=== PATIENT | male | born 1965 | race Asian ===

== ENCOUNTER 2025-08-22 17:56 | Inpatient (IN) | payer MEDICAID ==
[~2025-08-22] VITALS: Ht 162.6 cm; Wt 80.0 kg
[2025-08-22 18:32] LABS: MEAN PLATELET VOLUME 7.1 FL (7.4-10.4); RED CELL DISTRIBUTION WIDTH 14.0 % (11.5-14.5)
[2025-08-22 18:55] LABS: CREATININE 1.62 MG/DL (0.60-1.10); TOTAL CARBON DIOXIDE 24.4 MMOL/L (24-32); eCRCL 41 ML/MIN; eGFR 44 ML/MIN
[2025-08-22 19:24] LABS: LEUKOCYTE ESTERASE ,URINE NEGATIVE (Neg); NITRITES, URINE NEGATIVE (Neg); OCCULT BLOOD,URINE LARGE (Neg)
[2025-08-22 19:29] LABS: UA COLLECTION TYPE NON-SPECIFIED
[2025-08-22 19:31] LABS: MUCUS STRANDS NONE SEEN /LPF (Neg); SQUAMOUS EPITHELIAL CELL,UR FEW /LPF (FEW)
--- NOTE | 2025-08-22 19:31 | Physician Documentation ---
History of Present Illness General Chief Complaint: Abdominal Pain Stated Complaint: GI BLEED Time Seen by MD: 19:28 Mode of Arrival: EMS History of Present Illness Initial Comments The patient is a 60-year-old male transferred to our facility from [facility] for evaluation and a GI bleed. It the patient reports epigastric discomfort for last seven days. The patient is states he has also had black tarry stool over the last 4-5 days. The patient also reports intermittent epigastric abdominal pain. Patient denies any nausea or vomiting. The patient has denies any fever. Patient has hemoglobin at the outside institution was 8.3, CT imaging of the abdomen failed to demonstrate any significant pathology. With the patient was started on a Protonix drip and the patient was transferred to our facility. The patient is currently comfortable with no complaints of pain and no complaints of nausea. The patient denies any history of GI bleed in the past. He states he has not no either medical problems. The patient has not noted to be taking Flomax. The patient states he intermittently takes an aspirin for pain, but he states he does not take anything daily and he takes aspirin infrequently Medication Reconciliation Allergies: Coded Allergies: No Known Allergies (Unverified , 08/22/25) Miscellaneous Medications Home Med List (No Home Medications), (Reported) Past Medical History Past Medical History: No Pertinent History Past Surgical History: noncontributory Alcohol Use: None Drug Use: none Review of Systems All Other Systems at this time: Reviewed and Negative Physical Exam Physical Exam Vital Signs: Temperature: 98.4, Source: Oral, Heart Rate: 83, Respiratory Rate: 16, BP: 159/82, Pulse Oximetry: 100, Weight: 80.000 Oxygen Flow Rate: 0 Physical Exam VITALS: Reviewed and as above. GENERAL: Alert, no apparent distress. HEENT: Normocephalic, atraumatic, PERRL, EOMI, dry mucosa, no erythema RESPIRATORY: Lungs clear, normal breath sounds, no respiratory distress. CHEST: No accessory muscle use, no retractions CV: Regular rate, rhythm, no edema, no murmur, No: JVD GI: Soft, non-tender, bowels sounds present, no rebound, guarding, or rigidity BACK: No CVA tenderness, or swelling MUSCULOSKELETAL: No deformities, no edema SKIN: Warm and dry, no rash NEURO: Oriented x4, No motor or sensory deficit PSYCH: Normal mood and affect, no agitation Progress Results/Orders Results/Orders Completed Orders - OHL,MICHELLE Cooper MD Pantoprazole 40mg Iv (Protonix 40mg Iv) (08/22/25 20:25) Vital Signs 08/22/25 08/22/25 08/22/25 08/22/25 17:59 18:27 18:27 19:51 Temp 98.4 98.4 98.4 Pulse 80 83 82 Resp 20 16 16 20 B/P (MAP) 146/81 159/82 (107) 134/78 (96) Pulse Ox 100 100 100 O2 Flow Rate 0 0 0 08/22/25 21:05 Temp 98.4 Pulse 80 Resp 18 B/P (MAP) 140/73 (95) Pulse Ox 99 O2 Flow Rate 0 Laboratory Tests Test 08/22/25 18:15 08/22/25 18:50 White Blood Count 6.4 Red Blood Count 2.58 L Hemoglobin 8.2 L Hematocrit 23.6 L Mean Corpuscular Volume 91.3 Mean Corpuscular Hemoglobin 31.7 H Mean Corpuscular Hemoglobin Concent 34.7 Red Cell Distribution Width 14.0 Platelet Count 154 Mean Platelet Volume 7.1 L Neutrophils (%) (Auto) 72.4 Lymphocytes (%) (Auto) 20.3 L Monocytes (%) (Auto) 5.3 Eosinophils (%) (Auto) 1.2 Basophils (%) (Auto) 0.8 Neutrophils # (Auto) 4.6 Lymphocytes # (Auto) 1.3 Monocytes # (Auto) 0.3 Eosinophils # (Auto) 0.1 Basophils # (Auto) 0.1 CBC Comment Prothrombin Time 10.7 INR International Normalized Ratio 1.0 Activated Partial Thromboplast Time 24 Coagulation Comments Sodium Level 140 Potassium Level 4.4 Chloride Level 112 H Carbon Dioxide Level 24.4 Anion Gap 4 L Blood Urea Nitrogen 38 H Creatinine 1.62 H Estimated GFR/1.73 m2 44 BUN/Creatinine Ratio 23.5 H Glucose Level 137 H Hemoglobin A1c 6.3 H Calcium Level 7.9 L Phosphorus Level 2.1 L Magnesium Level 1.7 Total Bilirubin 0.2 Direct Bilirubin 0.1 Aspartate Amino Transf (AST/SGOT) 26 Alanine Aminotransferase (ALT/SGPT) 29 Alkaline Phosphatase 87 Pro-B-Type Natriuretic Peptide < 30 Total Protein 6.4 Albumin 2.9 L Globulin 3.5 Albumin/Globulin Ratio 0.8 L Triglycerides Level 174 H Cholesterol Level 132 LDL Cholesterol 75 HDL Cholesterol 34 L Cholesterol/HDL Ratio 3.9 Lipase 96 H Chemistry Comments Urine Specimen Description Non-specified Urine Color Yellow Urine Clarity Clear Urine pH 6.0 Urine Specific [place] <=1.005 Urine Protein Negative Urine Glucose (UA) Negative Urine Ketones Negative Urine Occult Blood Large H Urine Nitrite Negative Urine Bilirubin Negative Urine Urobilinogen 0.2 Urine Leukocyte Esterase Negative Urine RBC 10-20 Urine WBC 0-4 Urine Squamous Epithelial Cells Few Urine Bacteria None seen Urine Mucus None seen Urine Culture Indicated Not ind Volume Urine Centrifuged 10 ml Urine Comment Medical Decision Making Additional information obtaine: old records Findings The patient was transferred for admission to our hospital with a reported history of heme-positive black tarry stools over last four days, the patient is hemodynamically stable his hemoglobin is 8.2 with the outside institution of his 8.3 the patient has no abdominal pain at this time in his has a benign abdominal exam. The patient's chart from the outside institution was reviewed the patient's imaging results on of the CAT scan were reviewed. The patient's tray drier operator was interpreted as a sinus rhythm. The patient's pulse oximetry was interpreted as normal and adequate. The patient's Protonix drip was continued the patient had received Protonix drip and antibiotics at the outside institution. Case has been discussed with the hospitalist the patient will be admitted to the hospitalist Differential Diagnosis Anemia, GI bleed, peptic ulcer disease, malignancy, Departure Admitted to Inpatient Unit: yes, to hospitalist Impression: Primary Impression: GI bleed Qualified Codes: K92.2 - Gastrointestinal hemorrhage, unspecified Additional Impression: Anemia Qualified Codes: D64.9 - Anemia, unspecified Referrals: NO PRIMARY CARE PROVIDER (PCP) Signature Scribe Signature: no scribe Attestation: The note accurately reflects work and decisions made by me.Michelle Fairbanks MD 08/23/25 05:29 MICHELLE FAIRBANKS MD Aug 22, 2025 19:31
[2025-08-22] MEDS ORDERED: pantoprazole 40MG/NS 100ML BAG 100 ML IV ONE (20:20)
[2025-08-22] MEDS ORDERED: magnesium hydroxide 30ml (MOM) UD suspension PO PRN (21:00)
[2025-08-22] MEDS ORDERED: magnesium sulf-water 4G/100mL 100 ML IV PRN (21:00)
[2025-08-22] MEDS ORDERED: mag hydrox/Alum hydrox/simeth 30ml oral suspension PO PRN (21:00)
[2025-08-22] MEDS ORDERED: magnesium Cl slow-release 64mg tablet PO PRN (21:00)
[2025-08-22] MEDS ORDERED: magnesium sulf-water 2g/50mL 50 ML IV PRN (21:00)
[2025-08-22] MEDS ORDERED: ondansetron/PF 4mg/2ml inj IV PRN (21:00)
[2025-08-22] MEDS ORDERED: potassium Cl 40MEQ/1/2NS 520ml 520 ML IV PRN (21:00)
[2025-08-22] MEDS ORDERED: potassium Cl 20 mEq SR tablet PO PRN ×2 (21:00)
[2025-08-22] MEDS: pantoprazole 40MG/NS 100ML BAG 100 ML IV SCH (21:25)
[2025-08-22 21:45] LABS: APTT 24 SECONDS (22-32); INR 1.0 INR
[2025-08-22 22:02] LABS: CHOL/HDL RATIO 3.9 (0.00-4.99); LDL CHOLESTEROL 75 MG/DL (50-100); PHOSPHORUS 2.1 MG/DL (2.3-4.5); PRO BRAIN NATRIURETIC PEPTIDE < 30 PG/ML (0-125)
[2025-08-22 22:25] LABS: MEAN PLATELET VOLUME 6.8 FL (7.4-10.4); RED CELL DISTRIBUTION WIDTH 14.1 % (11.5-14.5)
[2025-08-22] MEDS ORDERED: dextrose 50%-water 50ml dispensing syringe IV PRN ×2 (22:40)
[2025-08-22] MEDS ORDERED: glucagon, human recombinant 1mg kit SUBCUT PRN (22:40)
[2025-08-22] MEDS ORDERED: DEXTROSE 15 GM of carb/4 tabs (each vial/BOTTLE has 4 tablets) PO PRN ×2 (22:40)
--- NOTE | 2025-08-22 22:43 | HISTORY AND PHYSICAL-Residence ---
History & Physical Providers to CC Resident Creating Document: JERARDO ERNST, RES CC: LINDA MARTINEZ MD ~ History of Present Illness Reason for Admit\Complaint: Upper GI bleed History of Present Illness A 60 year old Ignacia speaking patient, with limited Belgian proficiency who is a transfer from [facility]. Patient does not have any comorbid significant medical history, patient was a transfer from [facility] in view of upper GI bleed. As per patient he has had black tarry stools for the last one week, associated with mild vague intermittent epigastric pain. Patient expressed that he has been feeling extreme weakness and tiredness since the last one week. Patient denied any hematemesis, hematochezia. Patient denied any use of herbal supplements, excessive NSAIDs use, outside food consumption. As per patient patient has never undergone a colonoscopy before, he denied any family history of colon cancer Patient resides at [facility] with his . Patient visits primary care doctor in [facility] but could not tell me the name of the clinic or the doctor's name I tried connecting with the transfer machine operator services multiple times but they could not find a Ignacia transfer machine operator. Patient understands Belgian and was able to answer my questions. Allergies: Coded Allergies: No Known Allergies (Unverified , 08/22/25) Home Medications Home Medications Active Past Surgical History Surgical History Comment In 2020, patient underwent a cystourethroscopy with left retrograde pyelography and left retrograde ureteral stent placement. Past Social History Social History Comment Patient denied any alcohol/smoking/illicit drug use Alcohol Use: None Drug Use: None ROS All Other Systems: Reviewed and Negative ROS Constitutional: No fever, dizziness, weakness noted, no decrease in appetite HEENT: Normal vision. No sore throat, epistaxis, tinnitus Cardiovascular: No chest pain/discomfort, palpitations, syncope. no pedal edema Respiratory: No sob, cough,hemoptysis Gastrointestinal: No abdominal pain, nausea, vomiting. No diarrhea, melena noted Genitourinary: No frquency, urgency, incontinence, nocturia. No dysuria, hematuria. Musculoskeletal: Normal, no pains Endocrine: No fatigue, polydipsia, polyuria. No heat or cold intolerance Neurologic: No headache, vertigo. No weakness, numbness or tingling of extremities Psychiatric: No hallucinations/delusions, no anhedonia, no suicidal ideation Hematologic: No bruises Exam Vitals: Vital Signs Date Time Temp Pulse Resp B/P (MAP) Pulse Ox O2 Delivery O2 Flow Rate FiO2 08/22/25 22:08 98.4 78 16 142/81 (101) 98 0 General: General: Awake, oriented to person, place and time HEENT: Conjunctive are pink, sclerae clear, no icterus, pupil is equal in both sides, reactive to light, no ear discharge, no pharyngeal erythema or an edema. Neck: Supple, no JVD, no lymphadenopathy and thyromegaly. Chest: Equal air entry on both lungs, no additional sounds no rhonchi no wheezing at the moment. Cardiovascular: S1-S2 regular sinus rhythm and, regular rate, no gallops, no rubs, no murmurs Abdomen: No visible peristalsis, Bowel sounds present on auscultation, soft, no tenderness, no guarding, no rigidity Extremities: No obvious deformities, no pitting edema bilaterally, capillary refill intact, peripheral pulsations are intact on both sides Neurologic: Mental status: alert and conscious, oriented to place, person and time, preserved memory, normal speech. Cranial nerves I-XII: Normal. Motor system: Preserved power, coordination, no evidenced involuntary movements, strength 5/5 in four extremities. Sensory system: Preserved temperature, pain and vibration sensation. 2+ deep tendon reflexes in biceps, triceps, quadriceps. Negative Babinski. Cerebellar: No nystagmus, dysdiadochokinesia, normal [id number] testing. Musculoskeletal: No joint swelling, deformities, inflammations, and no scoliosis and back tenderness Skin: Warm and dry. Dry oral mucosa. Diagnostic Data Last Recorded Lab Results: 08/23/25 0202 08/22/25 1815 Diagnostic Data: Laboratory Tests Test 08/22/25 18:15 Prothrombin Time 10.7 SECONDS (9.0-12.0) INR International Normalized Ratio 1.0 INR Activated Partial Thromboplast Time 24 SECONDS (22-32) Coagulation Comments Advance Care Planning Advanced Care plannin - 30 Minutes (Spent 17 minutes of critical care time discussing advanced advanced care planning/resuscitative methods, patient decided he wanted to be full code) Additional Plan Assessment A 60 year old Ignacia speaking patient, with limited Belgian proficiency who is a transfer from [facility] in view of upper GI bleed. Upper GI bleed Normocytic normochromic anemia Patient reported one week of black tarry stools, associated with intermittent midepigastric Patient denied any excessive NSAIDs use, outside consumption of food Patient denied any family history of colon cancer, he has never undergone colonoscopy prior Patient received Protonix bolus in the ED, fecal occult blood test positive Patient's hemoglobin currently is at 8.1, hematocrit 23.7 and elevated BUN creatinine Plan Initiated the patient on 75 mL/hour maintenance fluids of lactated ringer, as patient has hyperchloremia Initiated the patient on Protonix drip Ordered H and H q.4h Transfuse if patient's hemoglobin drops below seven Keeping the patient NPO for possible endoscopy in a.m. Possible newly diagnosed type 2 diabetes mellitus Patient's blood glucose 137, A1c elevated at 6.3 Initiated the patient on hyperglycemia hypoglycemic protocol Code Status: Full code DVT Prophylaxis: SCDs Lines/Tubes: PIV Gi Prophylaxis: Protonix Nutrition: NPO PT:yes Prognosis: Guarded Disposition: Keeping the patient NPO for possible endoscopy in a.m. The above note has been reviewed and supervised by the senior resident PGY 2/PGY 3. Patient was seen and examined and discussed with attending physician Jerardo Ernst MD Internal medicine resident,PGY-1 Date of Service: Aug 22, 2025 Billing Provider: LINDA MARTINEZ MD Addendum Plan: 60 year old admitted with GI bleed PPI IV NPO GI consult h and h Q4hr transfuse for hgb <7 CCT 50 min using HIPPA compliant A/V technology JERARDO ERNST, RES Aug 22, 2025 22:43 LINDA MARTINEZ MD Aug 23, 2025 04:19
[2025-08-22] MEDS ORDERED: normal saline 1000ml 1,000 ML IV SCH (22:55)
[2025-08-23] VITALS (16 sets, daily range): BP systolic 98–147; BP diastolic 44–96; PULSE 68–87; RESP 14–20; TEMP 97.4–98; O2SAT 97–100
[2025-08-23] MEDS ORDERED: NO HOME MEDS (01:10)
[2025-08-23 02:12] LABS: MEAN PLATELET VOLUME 7.1 FL (7.4-10.4); RED CELL DISTRIBUTION WIDTH 14.2 % (11.5-14.5)
[2025-08-23 06:50] LABS: MEAN PLATELET VOLUME 7.4 FL (7.4-10.4); RED CELL DISTRIBUTION WIDTH 13.8 % (11.5-14.5)
[2025-08-23] MEDS: K and/or MAG REPLACEMENT MC SCH (07:00)
[2025-08-23] MEDS: docusate sod 100mg capsule PO SCH (07:00)
[2025-08-23] MEDS ORDERED: INSULIN LISPRO 100 UNIT/ML INSULN.PEN MULTI-DOSE SQ SCH (07:00)
[2025-08-23 07:13] LABS: CREATININE 1.59 MG/DL (0.60-1.10); TOTAL CARBON DIOXIDE 25.0 MMOL/L (24-32); eCRCL 41 ML/MIN; eGFR 45 ML/MIN
[2025-08-23] MEDS: ringers solution, lacted 1,000 ML IV SCH (07:33)
[2025-08-23 10:39] LABS: MEAN PLATELET VOLUME 6.8 FL (7.4-10.4); RED CELL DISTRIBUTION WIDTH 14.1 % (11.5-14.5)
[2025-08-23] MEDS ORDERED: propofol inj 20 ML IV ONE (13:37)
[2025-08-23] MEDS ORDERED: midazolam 1 mg/ML 2ml injection ONE (13:42)
[2025-08-23 15:27] LABS: MEAN PLATELET VOLUME 7.2 FL (7.4-10.4); RED CELL DISTRIBUTION WIDTH 14.3 % (11.5-14.5)
--- NOTE | 2025-08-23 15:44 | PROGRESS NOTE- Residence ---
Progress Note - Resident Providers to CC Resident Creating Document: RHONDA DAVISON, RES ~ Antibiotic Timeout Antibiotic Ordered?: No Subjective The patient was seen and examined at bedside today. He is Muong speaking but understands and speaks some [place]. He reported mild lower abdominal pain, never had a colonoscopy or endoscopy. And no past medical history of melena. Objective Vital Signs Date Time Temp Pulse Resp B/P (MAP) Pulse Ox O2 Delivery O2 Flow Rate FiO2 08/23/25 14:36 72 16 111/75 (87) 98 Room Air 0.0 08/23/25 13:56 98.1 Result Diagram: 08/23/25 1030 08/23/25 0552 Elderly male, awake and alert, not in acute distress Head: Normocephalic with an atraumatic Eyes: Pupils- 3mm, reacting to light, conjunctiva- anicteric Nose and throat: No polyps, septum- normal, no mucosal ulcers Neck: Supple, no lymphadenopathy, no carotid bruit Respiratory: No use of accessory muscles of respiration, Bilateral normal vesiscular breath sounds heard. No wheeze, rhochi or creps Cardiac: S1-S2 heard, rhythm regular, no gallop/murmur Abdomen: non distended, no tenderness, no organomegaly, bowel sounds - heard Extremities: no clubbing, no pedal edema, no deformities, peripheral pulses - 2+ Skin: warm and dry, no rash, no purpura Neuro: No focal deficit, gross cranial nerve exam - normal Coagulation Studies Laboratory Tests Test 08/22/25 18:15 Prothrombin Time 10.7 SECONDS (9.0-12.0) INR International Normalized Ratio 1.0 INR Activated Partial Thromboplast Time 24 SECONDS (22-32) Coagulation Comments Assessment Assessment A 60 year old Muong speaking patient, with limited [place]ian proficiency who is a transfer from [facility] in view of upper GI bleed. Plan Plan Upper GI bleed secondary to duodenal ulcer Normocytic normochromic anemia Colon cancer, can not be ruled out Patient underwent upper GI endoscopy today by Dr. Payne which showed nonbleeding duodenal ulcer, gastritis. He will need an outpatient colonoscopy after discharge. Resume diet-full liquids for lunch and regular diet for dinner if he tolerates it. Discontinue Protonix drip. Continue Protonix 40 mg b.i.d. Continue IV LR at 75 mL/hour. Patient's hemoglobin currently is at 7.3, continue to monitor HB and transfuse if it drops below 7.0. Prediabetes HbA1c elevated at 6.3 Continue outpatient follow up. RADHA likely secondary to vasomotor nephropathy Creatinine 1.59, downtrending from yesterday. Continue IV fluids. Continue monitoring kidney function. Code Status: Full code DVT Prophylaxis: SCDs Lines/Tubes: PIV Gi Prophylaxis: Protonix Nutrition: Full liquid diet PT: Ordered Prognosis: Guarded Disposition: Continue monitoring hemoglobin. Transfuse if hemoglobin drops below 7.0. Rhonda Davison MD Internal Medicine Resident, PGY-2 The patient was seen, examined and discussed with the attending physician, Dr. Galindo. Date of Service: Aug 23, 2025 Billing Provider: EMANUEL GALINDO MD,RHONDA GARCIA, RES Aug 23, 2025 15:44
[2025-08-23 19:33] LABS: MEAN PLATELET VOLUME 7.5 FL (7.4-10.4); RED CELL DISTRIBUTION WIDTH 14.1 % (11.5-14.5)
[2025-08-23 23:37] LABS: MEAN PLATELET VOLUME 6.9 FL (7.4-10.4); RED CELL DISTRIBUTION WIDTH 13.9 % (11.5-14.5)
[2025-08-24] VITALS (8 sets, daily range): BP systolic 107–133; BP diastolic 52–67; PULSE 65–75; RESP 16–18; TEMP 97.5–98; O2SAT 97–100
[2025-08-24 05:11] LABS: MEAN PLATELET VOLUME 7.2 FL (7.4-10.4); RED CELL DISTRIBUTION WIDTH 14.1 % (11.5-14.5)
[2025-08-24 05:26] LABS: CREATININE 1.85 MG/DL (0.60-1.10); TOTAL CARBON DIOXIDE 25.1 MMOL/L (24-32); eCRCL 36 ML/MIN; eGFR 37 ML/MIN
[2025-08-24 10:08] LABS: MEAN PLATELET VOLUME 6.9 FL (7.4-10.4); RED CELL DISTRIBUTION WIDTH 14.4 % (11.5-14.5)
[2025-08-24 13:26] LABS: MEAN PLATELET VOLUME 7.2 FL (7.4-10.4); RED CELL DISTRIBUTION WIDTH 14.2 % (11.5-14.5)
[2025-08-24 15:12] LABS: MEAN PLATELET VOLUME 6.9 FL (7.4-10.4); RED CELL DISTRIBUTION WIDTH 14.1 % (11.5-14.5)
--- NOTE | 2025-08-24 19:06 | PROGRESS NOTE- Residence ---
Progress Note - Resident Providers to CC Resident Creating Document: MILTON WHALEN RES ~ Antibiotic Timeout Antibiotic Ordered?: No Subjective The patient was seen and examined bedside. He complains of mild diffuse abdominal pain and did not have a bowel movement today. He had dark stool yesterday. He denies dizziness, shortness of breath, fever, chills. Objective Vital Signs Date Time Temp Pulse Resp B/P (MAP) Pulse Ox O2 Delivery O2 Flow Rate FiO2 08/24/25 18:50 97.9 75 18 133/52 (79) 100 Room Air 08/24/25 08:00 0.0 Result Diagram: 08/24/25 1503 08/24/25 0447 Awake, alert, oriented x 4, resting comfortably on the bed, not in acute distress HEENT: Normocephalic, atraumatic, PERRLA, anicteric sclera, pale conjunctiva, moist mucous membranes Neck: Supple, no lymphadenopathy, no carotid bruit Respiratory: No use of accessory muscles of respiration, Bilateral normal vesiscular breath sounds heard. No wheeze, rhochi or creps Cardiac: S1-S2 heard, rhythm regular, no gallop/murmur Abdomen: non distended, no tenderness, no organomegaly, bowel sounds - heard Extremities: no clubbing, no pedal edema Skin: warm and dry, no rash, no purpura Neuro: Speech is clear, No motor or sensory deficit, gross cranial nerve exam - normal Coagulation Studies Laboratory Tests Test 08/22/25 18:15 Prothrombin Time 10.7 SECONDS (9.0-12.0) INR International Normalized Ratio 1.0 INR Activated Partial Thromboplast Time 24 SECONDS (22-32) Coagulation Comments Assessment Assessment A 60 year old Muong speaking patient, with limited Cape Verdean proficiency who is a transfer from in view of upper GI bleed. Plan Plan Upper GI bleed Normocytic normochromic anemia Colon cancer, can not be ruled out Patient underwent upper GI endoscopy yesterday by Dr. Payne which showed normal esophagus, gastritis which was biopsied and nonbleeding duodenal ulcer with a clean ulcer base (Mac class III) He will need an outpatient colonoscopy after discharge. Continue regular diet Continue IV Protonix 40 mg b.i.d. Continue IV LR at 75 mL/hour. H/H - 7.3/21.6 1 unit of PRBC was transfused today, Monitor H&H Prediabetes HbA1c elevated at 6.3 Continue outpatient follow up. RADHA likely secondary to vasomotor nephropathy Creatinine uptrended from 1.59 to 1.85 Continue IV LR at 75 mL/hour Monitor BMP Code Status: Full code DVT Prophylaxis: SCDs Gi Prophylaxis: IV Protonix 40 mg BID Nutrition: Regular diet Prognosis: Guarded Disposition: Monitor H&H, Possible discharge tomorrow with outpatient follow up with Dr. Payne Resident attestation: The patient note has been reviewed and supervised by senior residents PGY-2/ PGY-3. Patient was seen, examined and discussed with attending physician, Dr. Josie Whalen MD Internal Medicine resident, PGY-1 Date of Service: Aug 24, 2025 Billing Provider: EMANUEL ANDREWS MD,MILTON, RES Aug 24, 2025 19:06
[2025-08-25 00:47] LABS: MEAN PLATELET VOLUME 7.5 FL (7.4-10.4); RED CELL DISTRIBUTION WIDTH 13.8 % (11.5-14.5)
[2025-08-25 06:00] VITALS: BP 112/65; PULSE 62; RESP 16; TEMP 97.8; O2SAT 100
[2025-08-25 06:56] LABS: MEAN PLATELET VOLUME 6.8 FL (7.4-10.4); RED CELL DISTRIBUTION WIDTH 14.4 % (11.5-14.5)
[2025-08-25 07:39] LABS: CREATININE 1.76 MG/DL (0.60-1.10); TOTAL CARBON DIOXIDE 26.1 MMOL/L (24-32); eCRCL 37 ML/MIN; eGFR 40 ML/MIN
--- NOTE | 2025-08-25 09:49 | PROGRESS NOTE- Residence ---
Progress Note - Resident Providers to CC Resident Creating Document: CECI DEWEY, YU ~ Central Line/PICC still needed: N\A Cruz-Non Protocol Cruz Indications Met/Not Met: F/C Indications Not Met Antibiotic Timeout Antibiotic Ordered?: No Subjective The patient was seen and examined bedside. No acute symptoms overnight. Still having melena, possibly from the previous bleed. No c/o abd pain/ distension, n/v, diarrhea/constipation. Objective Vital Signs Date Time Temp Pulse Resp B/P (MAP) Pulse Ox O2 Delivery O2 Flow Rate FiO2 08/25/25 06:00 97.8 62 16 112/65 (81) 100 Room Air 08/24/25 08:00 0.0 Result Diagram: 08/25/2563808/25/25638 Awake, alert, oriented x 4, resting comfortably on the bed, not in acute distress HEENT: Normocephalic, atraumatic, PERRLA, anicteric sclera, pale conjunctiva, moist mucous membranes Neck: Supple, no lymphadenopathy, no carotid bruit Respiratory: No use of accessory muscles of respiration, Bilateral normal vesiscular breath sounds heard. No wheeze, rhochi or creps Cardiac: S1-S2 heard, rhythm regular, no gallop/murmur Abdomen: non distended, no tenderness, no organomegaly, bowel sounds - heard Extremities: no clubbing, no pedal edema Skin: warm and dry, no rash, no purpura Neuro: Speech is clear, No motor or sensory deficit, gross cranial nerve exam - normal Coagulation Studies Laboratory Tests Test 08/22/25 18:15 Prothrombin Time 10.7 SECONDS (9.0-12.0) INR International Normalized Ratio 1.0 INR Activated Partial Thromboplast Time 24 SECONDS (22-32) Coagulation Comments Assessment Assessment A 60 year old Muong speaking patient, with limited Hong Konger proficiency was transfered from [facility] in view of upper GI bleed presenting as melena and normochromic normocytic anemia. He underwent endoscopy yesterday under conscious sedation which showed gastritis and a non bleeding duodenal ulcer with a clean base ( Mac class III ). Plan Plan -Continue IV Protonix 40 mg bid. -Patient can be discharged with oral protonix 40 mg bid until. - H&H stable at 8.7 and 25.3 after 1 unit PRBC transfusion. Continue to monitor and transfuse 1 unit of PRBC in case Hemoglobin drops below 7. -Continue regular diet. -Patient will need a screening colonoscopy, out patient basis since he has never undergone one before. - Follow up with biopy report from endoscopy. - No futher GI intervention required during current hospitalization. - All the above as been discussed and explained to the patient and his daughter. Ceci Dewey MD Internal Medicine, PGY 1 [facility] Date of Service: Aug 25, 2025 Billing Provider: JIMBO KING MD, SHIVANI, RES Aug 25, 2025 09:49
[2025-08-25 10:00] VITALS: BP 122/69; PULSE 66; RESP 22; TEMP 98.4; O2SAT 100
[2025-08-25] MEDS ORDERED: PANT-47 PO (11:00)
--- NOTE | 2025-08-25 16:43 | DISCHARGE SUMMARY-Residence ---
Discharge Summary Providers to CC Resident Creating Document: LION DAVISON, RES ~ Discharge Summary Admission Diagnosis: UPPER GI BLEED Hospital Course DATE OF ADMISSION: 08/22/2025 DATE OF DISCHARGE: 08/25/2025 Discharge disposition: Home Discharge Diagnosis\Comment: Upper GI bleed secondary to duodenal ulcer Normocytic normochromic anemia Colon cancer, can not be ruled out Prediabetes RADHA likely secondary to vasomotor nephropathy Operations\Procedures: Upper GI endoscopy by Dr. Penn on 08/22/2025 - Normal esophagus, gastritis which was biopsied and nonbleeding duodenal ulcer with a clean ulcer base (Mac class III) Consultants: Dr. Penn, docking saw operator Complications: None Condition on DC: Stable New Medications: Pantoprazole Sodium (PROTONIX tablet) 40 Mg Tablet.dr 40 MG PO BID for 30 Days, #60 TAB.SR Continued Medications: Home Med List (No Home Medications) Each Discharge Summary: The patient is a 60-year-old male with a limited Mongolian proficiency who was transferred from [facility] for the management of upper GI bleed. The patient had black tarry stools for the last one week associated with mild epigastric pain. He has also been feeling extreme weakness and tiredness since last one week. Patient denied hematemesis and hematochezia. No use of herbal supplements, NSAIDs. On evaluation in the ED, patient's hemoglobin was 8.1 and it dropped down to 7.1 after which he received 1 unit of PRBC transfusion. He was started on Protonix drip and IV fluids. Cook Larder on-call, Dr. Penn was consulted and the patient underwent upper GI endoscopy which showed nonbleeding duodenal ulcer and gastritis. He was started on Protonix 40 mg b.i.d. and he did not have any further melena. On the day of discharge, the patient was stable and had no new complaints. He was fully ambulatory. He is being discharged home with family. Advice on discharge: Follow up your PCP in 1 week. Follow up with your colonoscopy appointment with Dr. Pham, docking saw operator after discharge. Continue taking protonix 40 mg twice daily. Recheck CBC in one week. Ensure adequate nutrition and hydration. In the event of black stools, bloody stools, dizziness, lightheadedness, fainting episodes, call 911 or go to the ER immediately. Examination at discharge: Elderly male, awake and alert, not in acute distress Head: Normocephalic with an atraumatic Eyes: Pupils- 3mm, reacting to light, conjunctiva- anicteric Nose and throat: No polyps, septum- normal, no mucosal ulcers Neck: Supple, no lymphadenopathy, no carotid bruit Respiratory: No use of accessory muscles of respiration, Bilateral normal vesicular breath sounds heard. No wheeze, rhochi or creps Cardiac: S1-S2 heard, rhythm regular, no gallop/murmur Abdomen: non distended, no tenderness, no organomegaly, bowel sounds - heard Extremities: no clubbing, no pedal edema, no deformities, peripheral pulses - 2+ Skin: warm and dry, no rash, no purpura Neuro: No focal deficit, gross cranial nerve exam - normal Vital Signs Date Time Temp Pulse Resp B/P (MAP) Pulse Ox O2 Delivery O2 Flow Rate FiO2 08/25/25 10:00 98.4 66 22 122/69 (86) 100 Room Air 08/25/25 07:15 0.0 Laboratory Tests Test 08/23/25 19:06 08/23/25 23:23 08/24/25 04:47 08/24/25 09:54 White Blood Count 5.0 X10'3 5.5 X10'3 5.5 X10'3 5.1 X10'3 Red Blood Count 2.28 X10'6 2.26 X10'6 2.33 X10'6 2.34 X10'6 Hemoglobin 7.2 g/dl 7.1 g/dl 7.3 g/dl 7.4 g/dl Hematocrit 20.9 % 20.7 % 21.6 % 21.6 % Mean Corpuscular Volume 91.8 FL 91.6 FL 92.5 FL 92.2 FL Mean Corpuscular Hemoglobin 31.6 PG 31.3 PG 31.4 PG 31.6 PG Mean Corpuscular Hemoglobin Concent 34.4 g/dL 34.1 g/dL 33.9 g/dL 34.3 g/dL Red Cell Distribution Width 14.1 % 13.9 % 14.1 % 14.4 % Platelet Count 138 X10'3 138 X10'3 140 X10'3 138 X10'3 Mean Platelet Volume 7.5 FL 6.9 FL 7.2 FL 6.9 FL Hematology Comments Neutrophils (%) (Auto) 55.6 % Lymphocytes (%) (Auto) 34.1 % Monocytes (%) (Auto) 6.2 % Eosinophils (%) (Auto) 3.4 % Basophils (%) (Auto) 0.7 % Neutrophils # (Auto) 3.1 X10'3 Lymphocytes # (Auto) 1.9 X10'3 Monocytes # (Auto) 0.3 X10'3 Eosinophils # (Auto) 0.2 X10'3 Basophils # (Auto) 0.0 X10'3 CBC Comment Sodium Level 141 MMOL/L Potassium Level 4.3 MMOL/L Chloride Level 111 MMOL/L Carbon Dioxide Level 25.1 MMOL/L Anion Gap 5 Blood Urea Nitrogen 29 MG/DL Creatinine 1.85 MG/DL Estimated GFR/1.73 m2 37 ML/MIN BUN/Creatinine Ratio 15.7 Glucose Level 109 MG/DL Calcium Level 7.8 MG/DL Magnesium Level 1.7 MG/DL Total Bilirubin 0.3 MG/DL Aspartate Amino Transf (AST/SGOT) 23 U/L Alanine Aminotransferase (ALT/SGPT) 28 U/L Alkaline Phosphatase 66 IU/L Total Protein 5.8 G/DL Albumin 2.6 G/DL Globulin 3.2 G/DL Albumin/Globulin Ratio 0.8 Chemistry Comments Test 08/24/25 12:56 08/24/25 15:03 08/24/25 23:56 08/25/25 06:39 White Blood Count 5.0 X10'3 4.9 X10'3 6.2 X10'3 5.7 X10'3 Red Blood Count 2.48 X10'6 2.33 X10'6 2.78 X10'6 2.81 X10'6 Hemoglobin 7.8 g/dl 7.4 g/dl 8.7 g/dl 8.7 g/dl Hematocrit 22.9 % 21.2 % 25.0 % 25.3 % Mean Corpuscular Volume 92.5 FL 91.0 FL 89.9 FL 90.1 FL Mean Corpuscular Hemoglobin 31.3 PG 31.7 PG 31.3 PG 30.9 PG Mean Corpuscular Hemoglobin Concent 33.9 g/dL 34.9 g/dL 34.8 g/dL 34.3 g/dL Red Cell Distribution Width 14.2 % 14.1 % 13.8 % 14.4 % Platelet Count 151 X10'3 138 X10'3 146 X10'3 148 X10'3 Mean Platelet Volume 7.2 FL 6.9 FL 7.5 FL 6.8 FL Hematology Comments Neutrophils (%) (Auto) 52.8 % Lymphocytes (%) (Auto) 34.8 % Monocytes (%) (Auto) 7.8 % Eosinophils (%) (Auto) 4.0 % Basophils (%) (Auto) 0.6 % Neutrophils # (Auto) 3.0 X10'3 Lymphocytes # (Auto) 2.0 X10'3 Monocytes # (Auto) 0.4 X10'3 Eosinophils # (Auto) 0.2 X10'3 Basophils # (Auto) 0.0 X10'3 CBC Comment Sodium Level 142 MMOL/L Potassium Level 4.0 MMOL/L Chloride Level 110 MMOL/L Carbon Dioxide Level 26.1 MMOL/L Anion Gap 6 Blood Urea Nitrogen 25 MG/DL Creatinine 1.76 MG/DL Estimated GFR/1.73 m2 40 ML/MIN BUN/Creatinine Ratio 14.2 Glucose Level 109 MG/DL Calcium Level 8.0 MG/DL Magnesium Level 1.5 MG/DL Total Bilirubin 0.4 MG/DL Aspartate Amino Transf (AST/SGOT) 26 U/L Alanine Aminotransferase (ALT/SGPT) 28 U/L Alkaline Phosphatase 72 IU/L Total Protein 6.1 G/DL Albumin 2.7 G/DL Globulin 3.4 G/DL Albumin/Globulin Ratio 0.8 Chemistry Comments The patient was seen and evaluated with attending physician, Dr. Galindo on the day of discharge. Time spent on discharge 35 minutes. *Problems/Diagnosis: (1) Duodenal ulcer (2) GI bleed Status: Acute Total Time Spent on D/C: > 30 Minutes Date of Service: Aug 25, 2025 Billing Provider: EMANUEL GALINDO MD Problem Qualifiers (1) GI bleed: GI bleed type/associated pathology: unspecified gastrointestinal hemorrhage type Qualified Codes: K92.2 - Gastrointestinal hemorrhage, unspecified LION DAVISON, RES Aug 25, 2025 16:39
--- NOTE | 2025-08-25 22:50 | CONSULTATION ---
DATE OF CONSULTATION: 08/23/2025 DICTATING PHYSICIAN: Omar Pham MD REASON FOR CONSULTATION: Upper GI bleed. HISTORY OF PRESENT ILLNESS: The patient is 60 years old, Hmong speaking, much of the history obtained from Bengali-speaking daughter. He was transferred from [facility] because of one-week history of melena. The patient has no significant comorbid conditions, denies taking excessive nonsteroidal anti-inflammatories, not consuming excessive alcohol. Denies hematemesis or hematochezia. The patient never had endoscopy or colonoscopy before and no family history of any colorectal cancer. He lives in [facility] with his . PAST MEDICAL HISTORY: Negative. PAST SURGICAL HISTORY: Essentially negative. FAMILY HISTORY: Noncontributory. PERSONAL HISTORY: Noncontributory. REVIEW OF SYSTEMS: A 12-point review of systems same as history of present illness. PHYSICAL EXAMINATION: GENERAL: On physical exam, he is awake, alert, and appears to be in no apparent distress. VITAL SIGNS: Normal. NECK: Supple. No thyromegaly. No JVD. No significant lymphadenopathy. HEENT: Oral cavity within normal limits. HEART: Normal. LUNGS: Normal. ABDOMEN: Soft, nontender. No masses. No organomegaly. Bowel sounds are present. EXTREMITIES: Revealed no clubbing, cyanosis or edema. NEUROLOGIC: Cranial nerves bilaterally within normal limits. HEMATOLOGIC: Reveals no anemia, petechiae or purpura. PSYCHOLOGIC: Within normal limits. LABORATORY DATA: When he came in, he had a hemoglobin of 8.2, subsequently dropped to 7.8 and currently 7.5. Platelet count and MCV are normal. Coagulation profile is normal. Chemistry is essentially unremarkable. IMAGING DATA: The patient had abdomen and pelvic CT, which was essentially unremarkable except for a nonobstructing left UP junction stone with bilateral nephrolithiasis. IMPRESSION: A 60-year-old gentleman comes in with a 1-week long history of melena. The patient is hemodynamically stable, although has shown some blood loss anemia. The patient has no risk factors for peptic ulcer disease. This could just simply be garden variety of peptic ulcer disease. RECOMMENDATIONS: Continue current management and diagnostic endoscopy. The risks and benefits explained, understands and wishes to proceed. Therapeutic interventions for control of bleeding also explained, which he understands and wishes to proceed. Further recommendations will be made after the endoscopy. The patient's daughter was spoken to. Detailed discussion held. The patient was reassured and further recommendations were made after the endoscopy. Omar Pham MD TID: [id number] RECEIPT: [id number] NITISH Yo
== END 2025-08-25 14:24 | disposition home or self-care (01) | DRG 241 ==
LOC: ER 17:56 → ED HOLD 21:05 → EDBEDREQ 23:25 → ORTHO 4S 08-23 00:40
PROVIDERS: ADMIT Internal Medicine; ATTEND Family Medicine
PROC: 0DB78ZX Excision of Stomach, Pylorus, Via Natural or Artificial Opening Endoscopic, Diagnostic (ICD-10-PCS; 2025-08-23)
PROC: 0DB68ZX Excision of Stomach, Via Natural or Artificial Opening Endoscopic, Diagnostic (ICD-10-PCS; principal; 2025-08-23 13:36)
PROC: 30233N1 Transfusion of Nonautologous Red Blood Cells into Peripheral Vein, Percutaneous Approach (ICD-10-PCS; 2025-08-24)
DX: K26.4 Chronic or unspecified duodenal ulcer with hemorrhage (principal); N17.0 Acute kidney failure with tubular necrosis; C18.9 Malignant neoplasm of colon, unspecified; D50.0 Iron deficiency anemia secondary to blood loss (chronic); E87.8 Other disorders of electrolyte and fluid balance, not elsewhere classified; R73.03 Prediabetes; K29.71 Gastritis, unspecified, with bleeding
CPT/HCPCS: 36415; 36430; 43239; 80053; 80061; 81001; 82248; 82948; 83036; 83690; 83735; 83880; 84100; 85025; 85027; 85610; 85730; 86885; 86900; 86901; 86920; 87081; 96365; 99285; A4618; G0378; J1815; J2250; J2470; J2704; J7040; J7120; P9016